=== PATIENT | female | born 1970 | race Caucasian/White ===

== ENCOUNTER 2018-05-28 11:47 | Day surgery (SDC) | payer BC ==
[~2018-05-28] VITALS: Ht 166.4 cm; Wt 81.9 kg
[2018-05-28] VITALS (7 sets, daily range): BP systolic 116–147; BP diastolic 75–95; PULSE 69–95; TEMP 97.7
[2018-05-28] MEDS ORDERED: CIPRO 500MG TA500 MG PO (12:44)
[2018-05-28] MEDS ORDERED: FLAGYL500 MG PO (12:45)
--- NOTE | 2018-05-28 14:02 | NUR ---
The patient arrived back to [facility] at this time. The patient ambulated from the cart to the recliner in her room with the stand by assistance of two and appeared to tolerate the activity well. The patient does report feeling nauseated. She was reclined back in the chair and her lights were dimmed at this time. Call light is within reach. Will continue to monitor the patient.
--- NOTE | 2018-05-28 14:17 | NUR ---
The patient appears more alert at this time and requests to try some cofee. The patient's vital signs appear stable. Call light is within reach. The patient was given her cellphone from her purse at this time. Will continue to monitor the patient.
--- NOTE | 2018-05-28 14:38 | NUR ---
The patient is sitting up in the recliner watching television and appears to be resting comfortably at this time. The patient appears to be tolerating the coffee well without any complaints of nausea.
--- NOTE | 2018-05-28 14:55 | NUR ---
The patient appears to be resting comfortably in the recliner at this time. The patient has finished her coffee and denies wanting any further to eat or drink at this time. The patient's friend/ride has been notified the patient can be discharged at 1545.
--- NOTE | 2018-05-28 15:09 | NUR ---
Dr. Barnhart is at the patient's bedside discussing the findings of the procedure. Will continue to monitor the patient.
--- NOTE | 2018-05-28 15:20 | NUR ---
Discharge instructions were reviewed with the patient at this time. She verbalized understanding and has no questions for the nurse at this time. The patient's IV to her right forearm was removed and a pressure dressing was applied to the site. The nurse instructed the patient to get dressed and she would be back in to escort the patient down to her ride.
--- NOTE | 2018-05-28 15:41 | NUR ---
The patient ambulated out independently using a steady gait escorted by RAYMOND Will. The patient's belongings and discharge paperwork were sent with her. The patient's friend is present to drive her home.
== END 2018-05-28 15:41 | disposition home or self-care (01) ==
LOC: SDCO 11:47 → EDSTATUS 13:00 → SDCO 15:41
DX: K29.80 Duodenitis without bleeding (principal); K83.8 Other specified diseases of biliary tract; K80.20 Calculus of gallbladder without cholecystitis without obstruction; F17.210 Nicotine dependence, cigarettes, uncomplicated
CPT/HCPCS: C1769; C2625; J2704; J3010